=== PATIENT | female | born 1965 | race Caucasian/White ===

== ENCOUNTER 2022-01-07 15:30 | Emergency (ER) | payer MEDICARE, SELFPAY ==
[2022-01-07 15:32] VITALS: BP 149/92; PULSE 99; RESP 18; TEMP 36.3; O2SAT 98; BMI 27.4
--- NOTE | 2022-01-07 15:38 | EX.ED.UPPERE ---
HPI History of Present Illness Chief Complaint: Upper Extremity Injury Detail of Chief Complaint: Wrist injury Informant: patient Occured/Mechanism Mechanism/Context: Yes fall Onset/Context/Timing Onset: Today Context: Sudden Onset Quality of Pain: Aching and Throbbing Current Severity: Moderate Maximum Severity: Moderate Narrative Narrative: Patient presents secondary left wrist injury. She was rollerskating today and fell injuring her left wrist. She is right-hand dominant. She denies any other injury from the fall. PFSH PFS Medical History Bone cancer Allergy/AdvReac Type Severity Reaction Status Date / Time No Known Allergies Allergy Verified 01/07/22 15:31 Social History Smoking Status: Never smoker ROS ROS ED Constitutional Constitutional ED: Denies chills or fever(s) Eyes Eyes: Denies change in vision ENT ENT ED: Denies sore throat Cardiovascular Cardiovascular: Denies chest pain Respiratory/Chest Respiratory/Chest: Denies cough or dyspnea Gastrointestinal Gastrointestinal: Denies abdominal pain, diarrhea, nausea or vomiting Genitourinary Genitourinary ED: Denies dysuria Musculoskeletal Musculoskeletal: Reports other Details: Left wrist pain ; Denies back pain or neck pain Integumentary Denies rash Neurologic Neurologic: Denies headache(s) or paresthesias Psychiatric Psychiatric: Denies anxiety or depression Allergic/Immunologic Allergic/Immunologic ED: Denies urticaria EXAM Physical Exam Const Vital Signs: 01/07/22 15:32 Temperature 97.4 F L Temperature Source Temporal Pulse Rate 99 Respiratory Rate 18 Blood Pressure 149/92 H Blood Pressure Mean 111 Pulse Ox 98 Oxygen Delivery Method Room Air Positive well nourished and well developed General Appearance ED: well developed HEENT Reports moist mucous membranes Eyes PERRL and EOMs intact bilaterally Neck supple Chest Wall inspection of chest normal and palpation of chest normal Resp normal respiratory effort and clear to auscultation bilaterally Cardio regular rate and regular rhythm GI non-tender Palpation: soft Extremity Extremity Narrative: Mild edema with tenderness of the left wrist. Able to wiggle fingers distally with normal cap refill and sensation. No tenderness at the elbow or shoulder. Neuro oriented x3 Sensorium / Orientation: alert Psych mental status grossly normal Skin Lesions: no lesions Rashes: no rashes MDM MDM MDM Narrative Medical decision making narrative: Patient given IM morphine for pain. This was followed by a dose of Dilaudid. Left wrist x-rays obtained. Radiography Diagnostic Testing: Radiology Impression Wrist X-Ray 01/07/22 15:50 IMPRESSION: Acute fractures of the distal radius and ulna. Electronically Signed: Issa Horowitz MD at 16:19 EDT , Treatment and Re-Evaluation Narrative: Patient has fractures of the distal radius and ulna. Volar tilt is only slightly disrupted. Patient will require surgery for repair. She is placed in an Ortho-Glass AP splint by myself. She wishes to follow-up with [facility] as that is where she receives her cancer care. Radiology will send her images there as well as print a disc for her to take along. Patient is on oxycodone regularly for pain at home and will continue this. She will speak with her oncologist in the morning. Procedures Upper Extremity Splints Upper Extremity Splint: Orthoglass and - (AP splint) Splint Fabrication: Fabricated Location: Left Discharge Plan Triage Chief Complaint: Upper Extremity Injury ED Provider: Leonie Chen Dx/Rx/DC Orders Clinical Impression: Fracture of left wrist Instructions: ED Fracture, Wrist, General Primary Care Provider: Tha Bullock,Out of Referrals: Tha Bullock,Out of [Primary Care Provider] - Activity Restrictions/Additional Instructions: Please keep left wrist elevated to help with swelling. Take oxycodone as previously prescribed. Follow-up with orthopedics this week to discuss surgical repair. Disposition Disposition: Home, Self Care
[2022-01-07] MEDS: morphine 10 MG/ML Syringe IM (15:46)
--- NOTE | 2022-01-07 15:50 | RAD_ITS ---
EXAM: XR LEFT WRIST COMPLETE, 3 OR MORE VIEWS CLINICAL INDICATION: injury TECHNIQUE: Frontal, lateral and oblique views of the left wrist. This report was created using [employer] report generation technology. COMPARISON: None. FINDINGS: BONES/JOINTS: Acute nondisplaced fracture involving the ulnar styloid base. Acute comminuted fracture of the distal radius, specifically involving the epiphysis and metaphysis. Posttraumatic positive ulnar variance. No other acute fracture or malalignment. Preservation of the joint space. No sclerotic or destructive changes observed. SOFT TISSUES: Soft tissue swelling about the fracture site. No radiopaque foreign body. RAD/Wrist min 3 Views IMPRESSION: Acute fractures of the distal radius and ulna. Electronically Signed: Issa Horowitz MD at 16:19 EDT ,
[2022-01-07] MEDS: HYDROmorphone 1 MG/ML Syringe IM (16:44)
[2022-01-07 17:22] VITALS: PULSE 84; RESP 18
== END 2022-01-07 17:24 | disposition home or self-care (01) ==
PROVIDERS: Emergency Provider Emergency Medicine; Visit Provider Emergency Medicine
DX: S62.92XA Unspecified fracture of left hand, initial encounter for closed fracture (principal); W19.XXXA Unspecified fall, initial encounter; Y93.51 Activity, roller skating (inline) and skateboarding
CPT/HCPCS: 29125; 73110; 96372; 99283